=== PATIENT | female | born 1995 | race Caucasian/White ===

== ENCOUNTER 2016-12-10 13:43 | Emergency (ER) | payer MEDICAID ==
[~2016-12-10] VITALS: Ht 160 cm; Wt 66.2 kg
[2016-12-10 14:36] LABS: CONDITION Y; DEFINITIVE SEE PRINTOUT; Eosinophils # (auto) 0 uL
[2016-12-10 14:53] LABS: BUN/Creatinine Ratio 19.4; Bilirubin, Total 0.4 mg/dL (0.2-1.0); Calcium 8.7 mg/dL (8.5-10.1); Potassium 3.1 mmol/L (3.5-5.1); Total Protein 7.7 g/dL (6.4-8.2); Urine Bilirubin Negative (Negative); Urine Color Yellow (Yellow); Urine Glucose Normal (Normal); Urine Mucus FEW (None Seen); Urine Nitrite Negative (Negative); Urine RBC 55 /hpf (0 - 4); Urine Squamous Epithelial Cell FEW /hpf (<5); Urine pH 6.5 (5.0-8.0)
[2016-12-10 15:08] LABS: Urine Blood 2+ /uL (Negative); Urine Ketone 4+ (Negative)
[2016-12-10 15:09] LABS: Neutrophils % (auto) 86.1 % (37.0-80.0); White Blood Cell 8.6 10^3/uL (4.4-10.8)
[2016-12-10 15:10] LABS: Basophils # (auto) 0 uL; Basophils % (auto) 0.1 % (0.0-2.0); Eosinophils % (auto) 0.1 % (0.0-7.0); Lymphocytes % (auto) 11.4 % (10.0-50.0); Monocytes # (auto) 0.2 uL; Monocytes % (auto) 2.3 % (0.0-12.0); Neutrophils # (auto) 7.4 uL
[2016-12-10 15:11] LABS: Hematocrit 25.1 % (36.0-46.0); Hemoglobin 8.4 g/dL (12.2-16.2); Mean Corpuscular Hemoglobin 27.6 pg (28.0-32.0); Mean Corpuscular Hgb Conc. 33.5 g/dL (32.0-36.0); Mean Corpuscular Volume 82.2 fL (80.0-100.0); Mean Platelet Volume 8.1 fL (7.4-10.4); Platelet Count (auto) 502 10^3/uL (140-450); Red Cell Distribution Width 15.3 % (11.6-16.0)
[2016-12-10] MEDS ORDERED: ONDANSETRON HCL 4 MG/2 ML VIAL IV ONE ×2 (16:30→18:15)
[2016-12-10] MEDS ORDERED: SODIUM CHLORIDE 0.9% 1,000 ML IV ONE ×2 (16:30→18:15)
[2016-12-10] MEDS ORDERED: MORPHINE SULF INJ 2 MG/ML SYRINGE 1ML IV ONE ×2 (16:30→18:15)
[2016-12-10] MEDS ORDERED: POTASSIUM CHL 10% (20 MEQ/15ML) ORAL SOLN PO ONE (18:15)
[2016-12-10] MEDS ORDERED: POTASSIUM CHL 20MEQ/100ML 100 ML IV ONE ×2 (20:15)
[2016-12-10 22:41] VITALS: BP 121/83
== END 2016-12-10 22:42 | disposition home or self-care (01) ==
LOC: ER 13:43
DX: N93.9 Abnormal uterine and vaginal bleeding, unspecified (principal); E86.0 Dehydration; E87.6 Hypokalemia; D50.0 Iron deficiency anemia secondary to blood loss (chronic); F12.10 Cannabis abuse, uncomplicated
CPT/HCPCS: 36415; 76856; 80053; 80307; 81001; 84702; 85025; 86850; 86900; 86901; 96361; 96365; 96366; 96375; 96376; 99285; J2270; J2405; J3480; J7030

== ENCOUNTER 2016-12-11 19:03 | Emergency (ER) | payer MEDICAID ==
[~2016-12-11] VITALS: Ht 160 cm; Wt 62.6 kg
[2016-12-11 19:20] VITALS: BP 102/54
[2016-12-11 20:54] LABS: Basophils # (auto) 0 uL; Basophils % (auto) 0.5 % (0.0-2.0); CONDITION Y; Eosinophils # (auto) 0 uL; Eosinophils % (auto) 0.1 % (0.0-7.0); Hematocrit 26.7 % (36.0-46.0); Hemoglobin 8.9 g/dL (12.2-16.2); Lymphocytes # (auto) 1.3 uL; Lymphocytes % (auto) 18.4 % (10.0-50.0); Mean Corpuscular Hgb Conc. 33.3 g/dL (32.0-36.0); Mean Corpuscular Volume 81.1 fL (80.0-100.0); Monocytes # (auto) 0.4 uL; Monocytes % (auto) 5.4 % (0.0-12.0); Neutrophils # (auto) 5.4 uL; Neutrophils % (auto) 75.6 % (37.0-80.0); Platelet Count (auto) 518 10^3/uL (140-450); Red Cell Distribution Width 15.2 % (11.6-16.0); White Blood Cell 7.1 10^3/uL (4.4-10.8)
[2016-12-11 21:01] LABS: Urine Bilirubin Negative (Negative); Urine Color Yellow (Yellow); Urine Glucose Normal (Normal); Urine Mucus FEW (None Seen); Urine Nitrite Negative (Negative); Urine RBC 1 /hpf (0 - 4); Urine Squamous Epithelial Cell FEW /hpf (<5)
[2016-12-11 21:05] LABS: Urine Blood 1+ /uL (Negative); Urine Ketone 4+ (Negative)
[2016-12-11 21:07] LABS: Albumin 3.9 g/dL (3.4-5.0); BUN/Creatinine Ratio 14.1; Bilirubin, Total 0.6 mg/dL (0.2-1.0); Calcium 8.5 mg/dL (8.5-10.1); Magnesium 2.2 mg/dL (1.6-2.6); Potassium 3.1 mmol/L (3.5-5.1); Total Protein 7.7 g/dL (6.4-8.2)
== END 2016-12-11 23:34 | disposition left against medical advice (07) ==
LOC: ER 19:05
DX: R11.2 Nausea with vomiting, unspecified (principal); R10.84 Generalized abdominal pain; Z53.21 Procedure and treatment not carried out due to patient leaving prior to being seen by health care provider
CPT/HCPCS: 36415; 80053; 81001; 81025; 83735; 85025